=== PATIENT | male | born 2000 | race Caucasian/White ===

== ENCOUNTER 2018-04-20 10:24 | Emergency (ER) | payer OTHER ==
[2018-04-20 10:43] VITALS: BP 131/72
--- NOTE | 2018-06-01 09:17 | UC ---
Heather Munoz Emily, scribed for Marion Roche MD on 04/20/18 at 1056 . Dental HPI - HPI Summary HPI Summary: This patient is a 17 year old M presenting to convenient care with a chief complaint of right upper gum pain began 2 days ago. The patient rates the pain 8 /10 in severity. Symptoms aggravated by nothing. Symptoms alleviated by nothing. Patient reports R upper gum swelling. Patient denies ear pain. Pt reports that he called his dentist, who referred him to urgent care because the soonest appointment was May 08, 2018. Pt reports having a recent root canal in the back, upper right. - History of Current Complaint Chief Complaint: UCDentalProblem Stated Complaint: FACE SWELLING Time Seen by Provider: 04/20/18 10:46 Hx Obtained From: Patient Onset/Duration: Sudden Onset, Lasting Days, Still Present Severity: Severe Pain Intensity: 8 Pain Scale Used: 0-10 Numeric Aggravating Factor(s): Nothing Alleviating Factor(s): Nothing Related History: Previous Dental Care on Same Tooth - Allergies/Home Medications Allergies/Adverse Reactions: Allergies Allergy/AdvReac Type Severity Reaction Status Date / Time No Known Allergies Allergy Verified 04/20/18 10:36 PMH/Surg Hx/FS Hx/Imm Hx Previously Healthy: No Respiratory History: Asthma Neurological History: Other Other Neurological History: Concussion - Surgical History Surgical History: None - Family History Known Family History: Negative: Cardiac Disease, Hypertension, Diabetes - Social History Occupation: Student Lives: With Family Alcohol Use: None Substance Use Type: None Smoking Status (MU): Never Smoked Tobacco - Immunization History Vaccination Up to Date: Yes Review of Systems Constitutional: Other - Negative fever ENT: Other - Positive right upper gum swelling and right upper gum pain. Negative ear pain All Other Systems Reviewed And Are Negative: Yes Physical Exam Triage Information Reviewed: Yes Appearance: Well-Appearing Vital Signs: Initial Vital Signs Temp 97.7 F 04/20/18 10:38 Pulse 56 04/20/18 10:38 Resp 16 04/20/18 10:38 BP 131/72 04/20/18 10:38 Pulse Ox 99 04/20/18 10:38 Vital Signs Reviewed: Yes Eye Exam: Normal ENT: Positive: Other - Both ear drums are scarred but both are intact Dental Exam: Other - R first molar percussion tenderness, mild swelling gum. Tongue not elevated. Neck exam: Normal Neck: Positive: Supple, Nontender, No Lymphadenopathy Respiratory Exam: Normal Respiratory: Positive: Other: - No dyspnea, no tachypnea, normal respiratory rate Cardiovascular Exam: Normal Cardiovascular: Positive: RRR, Other: - Good skin color, good capillary refill Abdominal Exam: Normal Abdomen Description: Positive: Nontender, No Organomegaly, Soft Bowel Sounds: Positive: Present Musculoskeletal Exam: Normal Musculoskeletal: Positive: Strength Intact Neurological Exam: Normal Neurological: Positive: Other: - Nonfocal, grossly intact Psychological Exam: Normal Psychological: Positive: Other: - Conversing easily and appropriately Skin Exam: Normal Skin: Positive: Other - No visible or reported rash Dental Complaint Course/Dx - Course Course Of Treatment: Reviewed coa / tx plan with pt. Questions as posed answered to the best of my ability. - Differential Dx/Diagnosis Provider Diagnoses: Dental Abscess Discharge - Sign-Out/Discharge Documenting (check all that apply): Patient Departure - Discharge - Discharge Plan Condition: Stable Disposition: HOME Prescriptions: Amoxicillin/Clavulanate TAB* [Augmentin TAB 875*] 875 mg PO BID #20 tab Ibuprofen TAB* [Motrin TAB* 600 MG] 600 mg PO Q8H PRN #30 tab PRN Reason: Pain Patient Education Materials: Dental Abscess (ED) Referrals: Abdulaziz Huffman MD [Primary Care Provider] - Additional Instructions: PROBIOTICS OR YOGURT ONCE A DAY EVERYDAY, WHILE TAKING THE ANTIBIOTICS FOLLOW UP WITH YOUR DENTIST SCHEDULED BEGINNING OF APRIL. SEEK CARE AT THE EMERGENCY DEPARTMENT IF SYMPTOMS WORSEN OR IF NEW SYMPTOMS DEVELOP. - Billing Disposition and Condition Condition: STABLE Disposition: Home The documentation as recorded by the Heather torres Emily accurately reflects the service I personally performed and the decisions made by me, Marion Roche MD.
== END 2018-04-20 11:24 | disposition home or self-care (01) ==
LOC: UCEAST 10:24
DX: K04.7 Periapical abscess without sinus (principal); J45.909 Unspecified asthma, uncomplicated; Z87.820 Personal history of traumatic brain injury
CPT/HCPCS: 99212; G0463

== ENCOUNTER 2018-08-25 15:12 | Emergency (ER) | payer OTHER ==
--- OUTSIDE RECORDS SUMMARY | 2018-08-25 15:19 | XMS REPORT ---
:2000 External Reference #:[id number] Author Organization [facility] Address [address] [place] [id number] Phone [phone] Care Team Providers Name Role Phone Abdulaziz Huffman M.D. Primary Care Physician Unavailable Payers Type Date Identification Numbers Payment Provider Subscriber Commercial Effective: Policy Number: [id number] Homero Patterson 2004 [employer] Expires: 2018 PayID: [id number] [address] [address] [place] [address] Medicaid Effective: 2018 Policy Number: [id number] Medicaid [place] Fahad Patterson PayID: [id number] [address] [place] [address] Problems Date Description Provider Status Onset: 06/21/2010 Insomnia Active Onset: 02/11/2010 Anxiety state Active Onset: 10/23/2004 Attention deficit hyperactivity disorder Active Onset: Asthma Active Family History Date Family Member(s) Problem(s) Comments Father Depression Mother Asthma Mother Depression Mother Hypertension First Brother Attention Deficit Disorder (ADD) Social History Type Date Description Comments ETOH Use Denies alcohol use Smoking Patient has never smoked Recreational Drug Use Denies Drug Use Smoking Exposure To Second-Hand Smoke Currently Active Has never engaged in sexual activity Allergies, Adverse Reactions, Alerts Date Description Reaction Status Severity Comments 08/13/2015 NKDA active Medications Medication Date Status Form Strength Qnty SIG Indications Ordering Provider No Active 03/29/ Active Unknown Medications 2018 Mometasone 03/03/ Hx Cream 0.1% 45uni apply tafa Ger G. Furoate 2018 - ts twice a day Amirah, 03/17/ for 2 weeks MCricket 2018 No Active 02/05/ Hx Unknown Medications 2017 - 2017 Clotrimazole 02/05/ Hx Cream 1% 45gm apply four L03.119 Abdulaziz 2018 - times a day Snedeker, 03/22/ x 2 weeks M.D. 2018 to affected skin Clotrimazole 01/22/ Hx Cream 1% 45gm apply four L03.119 Ger Stack 2018 - times a day Torrado, 02/05/ x 2 weeks M.D. 2018 to affected skin Mometasone 01/22/ Hx Cream 0.1% 45gm apply tafa L03.119 Ger Stack Furoate 2018 - twice a day Torrado, 02/05/ for 2 weeks M.D. 2017 No Active 01/15/ Hx Unknown Medications 2017 - 2017 Cephalexin 01/15/ Hx Capsules 500mg QS 1 tab by L03.119 Ger Stack 2018 - mouth three Torrado, 02/05/ times a day M.D. 2018 x 7 days Mupirocin 01/15/ Hx Ointment 2% 44gm apply tafa [id number] Abdulaziz 2018 - three times Snedeker, 02/05/ a day until M.D. 2018 resolved Ibuprofen 11/13/ Hx Tablets 800mg 30tab 1 tab by Abdulaziz 2017 - s mouth every Snedeker, 01/15/ 6 hours as M.D. 2018 needed Citalopram 09/05/ Hx Tablets 20mg 30tab 1 tab by F41.1 Abdulaziz Hydrobromide 2015 - s mouth daily Snedeker, 01/15/ M.D. 2017 No Active 03/12/ Hx Unknown Medications 2015 - 2015 Ventolin HFA 01/01/ Hx Aerosol 108(90Bas 8.5un Inhale Two Abdulaziz 2014 - e) its Puffs By Snedeker, 08/13/ mcg/Act Mouthevery M.D. 2014 4 Hours as Needed Methylphenidate 12/21/ Hx Tablets 54mg 90tab one cap by Abdulaziz HCL ER 2015 - ER lets mouth daily Snedeker, 03/11/ (code B) M.D. 2016 Concerta 08/08/ Hx Tablets 54mg 30tab 1 tab by Abdulaziz 2014 - ER s mouth daily Snedeker, 12/21/ every M.D. 2015 morning Ventolin HFA 04/10/ Hx Aerosol 108mcg/Ac Q4H prn Unknown 2014 - t 2014 Citalopram 04/05/ Hx Tablets 40mg 30tab Take One Ger Stack Hydrobromide 2013 - s Tablet By Amirah, 02/19/ Mouth Once M.D. 2015 Daily Clonidine HCL 04/05/ Hx Tablets 0.3mg 30tab Take One Ger Stack 2013 - s Tablet By Amirah, 02/19/ Mouth Once M.D. 2014 Daily Melatonin-Pyridox 07/22/ Hx Tablets 5-10mg Unknown ine 2012 - 2014 Citalopram / Hx Tablets 40mg Take One Unknown Hydrobromide 0000 - Tablet By 03/11/ Mouth Once 2016 Daily Ibuprofen / Hx Tablets 600mg Unknown - 2015 Proair HFA / Hx Aerosol 108(90Bas Inhale Two Unknown 0000 - e) Puffs By 03/11/ mcg/Act Mouthevery 2016 4 Hours as Needed Ventolin HFA / Hx Aerosol 108(90Bas 8gm 2 puffs Abdulaziz 0000 - e) with spacer Snedeker, 01/15/ mcg/Act every 4 M.D. 2018 hours as needed for wheezing or coughing Clonidine HCL / Hx Tablets 0.3mg 30tab 1 tab by Abdulaziz 0000 - s mouth at Snedeker, 01/15/ bedtime M.D. 2018 Medications Administered in Office Medication Date Status Form Strength Qnty SIG Indications Ordering Provider Immunization 03/27/ Administered Injection Cj Administration 2017 LEE Pitts Single Or Combination Immunization 09/05/ Administered Injection Abdulaziz Administration 2016 Snedeker, Single Or M.D. Combination Immunization 03/12/ Administered Injection Abdulaziz Administration 2016 Snedeker, Single Or M.D. Combination Immunization 03/23/ Administered Injection Susan Administration Lisbeth Perera, thru 18 yrs M.D. w/counseling Immunization 02/19/ Administered Injection Abdulaziz Administration 2015 Armida, thru 16 yrs M.D. w/counseling Immunizations CPT Code Status Date Vaccine Lot # [id number] Given 03/27/2017 Meningococcal B Vaccine [id number] 91011 Given 09/05/2016 Flu Quadrivalent [id number] 10357 Given 03/12/2016 Meningococcal B Vaccine [id number] 35180 Given 03/23/2015 Hepatitis B Vaccine Pediatric/Adolescent [id number] 95469 Given 02/19/2015 Meningococcal Vaccine (Any Groups) For [id number] Subcutaneous Use 37095 Given 02/19/2015 Gardasil [id number] 28226 Given 09/06/2013 Influenza Virus Vaccine, Split Virus, 6-35 Months Age Intramuscul 68190 Given 09/06/2013 Gardasil 76793 Given 12/07/2012 Influenza Virus Vaccine, Split Virus, 6-35 Months Age Intramuscul 36449 Given 12/07/2012 Gardasil 79738 Given 11/18/2011 Influenza Virus Vaccine, Split Virus, 6-35 Months Age Intramuscul 69099 Given 11/12/2010 Influenza Virus Vaccine, Split Virus, 6-35 Months Age Intramuscul 00457 Given 11/07/2009 Varicella (Chicken Pox) Vaccine 12807 Given 11/07/2009 Hepatitis A Pediatric 72802 Given 09/27/2009 Influenza Virus Vaccine, Split Virus, 6-35 Months Age Intramuscul 02551 Given 09/25/2009 Tdap 76011 Given 08/09/2008 Menactra 11993 Given 08/09/2008 Hepatitis A Pediatric 34864 Given 09/05/2004 Influenza Virus Vaccine, Split Virus, 6-35 Months Age Intramuscul 64641 Given 06/05/2003 DTaP Vaccine Younger Than 7 67571 Given 06/05/2003 MMR Vaccine, Live, For Subcutaneous Use 82625 Given 06/05/2003 Polio Injectable 69832 Given 05/07/2001 Prevnar 13 74555 Given 11/11/2000 Influenza Virus Vaccine, Split Virus, 6-35 Months Age Intramuscul 86132 Given 04/03/2000 DTaP Vaccine Younger Than 7 34988 Given 04/03/2000 Hib Vaccine 75301 Given 12/06/1999 Varicella (Chicken Pox) Vaccine 14474 Given 12/06/1999 Polio Injectable 79488 Given 12/06/1999 MMR Vaccine, Live, For Subcutaneous Use 37137 Given 04/02/1999 Hib Vaccine 33977 Given 04/02/1999 Rotateq 60032 Given 04/02/1999 DTaP Vaccine Younger Than 7 69879 Given 04/02/1999 Hepatitis B Vaccine Pediatric/Adolescent 33532 Given 02/01/1999 Polio Injectable 76849 Given 02/01/1999 DTaP Vaccine Younger Than 7 91442 Given 02/01/1999 Rotateq 70105 Given 02/01/1999 Hib Vaccine 69450 Given 1998 Polio Injectable 79108 Given 1998 DTaP Vaccine Younger Than 7 92683 Given 1998 Hib Vaccine 38052 Given 1998 Hepatitis B Vaccine Pediatric/Adolescent 10284 Given 1998 Hepatitis B Vaccine Pediatric/Adolescent Vital Signs Date Vital Result Comment 07/27/2018 Body Temperature 98.1 F Heart Rate 88 /min Respiratory Rate 14 /min BP Systolic 112 mmHg BP Diastolic 78 mmHg Weight 317.50 lb Weight in kg's 144.018 Weight Percentile >97th 03/29/2018 Body Temperature 97.4 F Heart Rate 77 /min Respiratory Rate 18 /min BP Systolic 122 mmHg BP Diastolic 72 mmHg Weight 318.00 lb Weight in kg's 144.245 Height 71 inches 5'11" BMI (Body Mass Index) 44.3 kg/m2 Body Mass Index Percentile 99 % Height Percentile 69 % Weight Percentile >97th 02/05/2018 Body Temperature 96.5 F Heart Rate 92 /min Respiratory Rate 20 /min BP Systolic 128 mmHg BP Diastolic 74 mmHg Weight 311.00 lb Weight in kg's 141.070 Weight Percentile >97th 01/22/2018 Body Temperature 97.1 F Heart Rate 76 /min Respiratory Rate 14 /min BP Systolic 120 mmHg BP Diastolic 82 mmHg Weight 314.62 lb Weight in kg's 142.714 Weight Percentile >97th 01/15/2018 Body Temperature 97.7 F Heart Rate 82 /min Respiratory Rate 18 /min BP Systolic 128 mmHg BP Diastolic 76 mmHg Weight 312.00 lb Weight in kg's 141.523 Weight Percentile >97th 03/27/2017 Body Temperature 97.9 F Heart Rate 67 /min Respiratory Rate 16 /min BP Systolic 112 mmHg BP Diastolic 71 mmHg Blood Pressure Percentile 0 % Weight 273.75 lb Weight in kg's 124.173 Height 71.25 inches 5'11.25" BMI (Body Mass Index) 37.9 kg/m2 Body Mass Index Percentile 99 % Height Percentile 74 % Weight Percentile >97th 10/10/2016 Body Temperature 98.0 F Heart Rate 70 /min Respiratory Rate 14 /min BP Systolic 118 mmHg BP Diastolic 70 mmHg Blood Pressure Percentile 33 % Weight 237.25 lb Weight in kg's 107.617 Height 71.25 inches 5'11.25" BMI (Body Mass Index) 32.9 kg/m2 Body Mass Index Percentile 98 % Height Percentile 75 % Weight Percentile >97th 09/05/2016 Body Temperature 98.1 F Heart Rate 80 /min Respiratory Rate 20 /min BP Systolic 162 mmHg BP Diastolic 62 mmHg Blood Pressure Percentile 0 % Weight 234.00 lb Weight in kg's 106.142 Weight Percentile >97th 03/12/2016 Body Temperature 98.3 F Heart Rate 55 /min Respiratory Rate 12 /min BP Systolic 113 mmHg BP Diastolic 57 mmHg Blood Pressure Percentile 21 % Weight 227.25 lb Weight in kg's 103.081 Height 71.25 inches 5'11.25" BMI (Body Mass Index) 31.5 kg/m2 Body Mass Index Percentile 98 % Height Percentile 77 % Weight Percentile >97th 08/28/2015 Body Temperature 98.8 F Heart Rate 68 /min Respiratory Rate 18 /min BP Systolic 118 mmHg BP Diastolic 78 mmHg Blood Pressure Percentile 0 % Weight 217.62 lb Weight in kg's 98.715 Weight Percentile >97th 08/22/2015 Body Temperature 98.6 F Heart Rate 72 /min Respiratory Rate 10 /min BP Systolic 112 mmHg BP Diastolic 49 mmHg Weight 218.00 lb Weight in kg's 98.883 Height 71 inches O2 % BldC Oximetry 100 % 08/13/2015 Body Temperature 97.9 F Heart Rate 60 /min Respiratory Rate 18 /min BP Systolic 110 mmHg BP Diastolic 72 mmHg Blood Pressure Percentile 16 % Weight 218.00 lb Weight in kg's 98.885 Height 70.9 inches 5'10.90" BMI (Body Mass Index) 30.5 kg/m2 Body Mass Index Percentile 98 % Height Percentile 76 % Weight Percentile >97th 03/23/2015 Body Temperature 97.8 F Heart Rate 68 /min Respiratory Rate 18 /min BP Systolic 112 mmHg BP Diastolic 62 mmHg Blood Pressure Percentile 24 % Weight 234.25 lb Weight in kg's 106.256 Height 70.4 inches 5'10.40" BMI (Body Mass Index) 33.2 kg/m2 Body Mass Index Percentile 99 % Height Percentile 72 % Weight Percentile >97th 02/19/2015 Body Temperature 98.5 F Heart Rate 84 /min Respiratory Rate 16 /min BP Systolic 118 mmHg BP Diastolic 72 mmHg Blood Pressure Percentile 47 % Weight 233.00 lb Weight in kg's 105.689 Height 70 inches 5'10" BMI (Body Mass Index) 33.4 kg/m2 Body Mass Index Percentile 99 % Height Percentile 68 % Weight Percentile >97th 08/01/2014 Heart Rate 101 /min Respiratory Rate 16 /min BP Systolic 115 mmHg BP Diastolic 72 mmHg Weight 214.12 lb Weight in kg's 97.114 01/03/2014 Heart Rate 79 /min Respiratory Rate 12 /min BP Systolic 128 mmHg BP Diastolic 84 mmHg Weight 208.81 lb Weight in kg's 94.710 Height 69.5 inches 12/13/2013 Heart Rate 90 /min Respiratory Rate 12 /min BP Systolic 108 mmHg BP Diastolic 71 mmHg Weight 207.88 lb Weight in kg's 94.302 Height 69.5 inches 09/06/2013 Heart Rate 91 /min Respiratory Rate 16 /min BP Systolic 117 mmHg BP Diastolic 62 mmHg Weight 204.12 lb Weight in kg's 92.578 09/02/2013 Heart Rate 84 /min Respiratory Rate 12 /min BP Systolic 124 mmHg BP Diastolic 82 mmHg Weight 201.00 lb Weight in kg's 91.172 08/12/2013 Heart Rate 93 /min Respiratory Rate 12 /min BP Systolic 126 mmHg BP Diastolic 72 mmHg Weight 203.88 lb Weight in kg's 92.487 08/02/2013 Heart Rate 104 /min Respiratory Rate 12 /min BP Systolic 126 mmHg BP Diastolic 69 mmHg Weight 203.81 lb Weight in kg's 92.442 07/26/2013 Heart Rate 96 /min Respiratory Rate 20 /min BP Systolic 126 mmHg BP Diastolic 72 mmHg Weight 200.50 lb Weight in kg's 90.945 07/07/2013 Heart Rate 76 /min Respiratory Rate 18 /min BP Systolic 100 mmHg BP Diastolic 72 mmHg Weight 199.25 lb Weight in kg's 90.378 Height 68 inches 12/07/2012 Heart Rate 84 /min Respiratory Rate 18 /min BP Systolic 110 mmHg BP Diastolic 63 mmHg Weight 189.25 lb Weight in kg's 85.842 Height 67.5 inches 11/19/2012 Heart Rate 120 /min Respiratory Rate 20 /min BP Systolic 104 mmHg BP Diastolic 60 mmHg Weight 185.75 lb Weight in kg's 84.255 04/06/2012 Heart Rate 93 /min Respiratory Rate 20 /min BP Systolic 118 mmHg BP Diastolic 76 mmHg Weight 165.31 lb Weight in kg's 74.979 03/12/2012 Heart Rate 108 /min Respiratory Rate 24 /min BP Systolic 106 mmHg BP Diastolic 62 mmHg Weight 165.00 lb Weight in kg's 74.843 Height 64.75 inches 11/18/2011 Heart Rate 84 /min Respiratory Rate 20 /min BP Systolic 108 mmHg BP Diastolic 66 mmHg Weight 149.50 lb Weight in kg's 67.812 Height 63.75 inches 09/09/2011 Heart Rate 64 /min Respiratory Rate 12 /min BP Systolic 120 mmHg BP Diastolic 66 mmHg Weight 137.62 lb Weight in kg's 62.414 Height 62.75 inches 06/10/2011 Heart Rate 79 /min Respiratory Rate 16 /min BP Systolic 90 mmHg BP Diastolic 59 mmHg Weight 126.12 lb Weight in kg's 57.198 Height 62.25 inches 05/27/2011 Heart Rate 109 /min Respiratory Rate 20 /min BP Systolic 109 mmHg BP Diastolic 82 mmHg Weight 125.12 lb Weight in kg's 56.744 03/11/2011 Heart Rate 92 /min Respiratory Rate 12 /min BP Systolic 97 mmHg BP Diastolic 63 mmHg Weight 125.00 lb Weight in kg's 56.699 Height 61.75 inches 02/20/2011 Weight 124.88 lb Weight in kg's 56.654 12/10/2010 Heart Rate 76 /min Respiratory Rate 12 /min BP Systolic 105 mmHg BP Diastolic 77 mmHg Weight 122.31 lb Weight in kg's 55.474 Height 60.75 inches 11/12/2010 Heart Rate 91 /min Respiratory Rate 12 /min BP Systolic 98 mmHg BP Diastolic 66 mmHg Weight 123.88 lb Weight in kg's 56.200 Height 60.87 inches 08/26/2010 Heart Rate 100 /min Respiratory Rate 20 /min BP Systolic 96 mmHg BP Diastolic 58 mmHg Weight 117.75 lb Weight in kg's 53.401 Height 60.25 inches 06/21/2010 Heart Rate 84 /min Respiratory Rate 16 /min BP Systolic 106 mmHg BP Diastolic 66 mmHg Weight 111.00 lb Weight in kg's 50.349 Height 60.25 inches 04/10/2010 Heart Rate 68 /min Respiratory Rate 14 /min BP Systolic 108 mmHg BP Diastolic 74 mmHg Weight 111.50 lb Weight in kg's 50.576 Height 60 inches 03/29/2010 Heart Rate 82 /min Respiratory Rate 16 /min BP Systolic 110 mmHg BP Diastolic 74 mmHg Weight 110.25 lb Weight in kg's 50.009 Height 60 inches 03/20/2010 Heart Rate 92 /min Respiratory Rate 16 /min BP Systolic 110 mmHg BP Diastolic 70 mmHg Weight 109.00 lb Weight in kg's 49.442 03/01/2010 Heart Rate 88 /min Respiratory Rate 16 /min BP Systolic 110 mmHg BP Diastolic 70 mmHg Weight 106.25 lb Weight in kg's 48.194 Height 59.5 inches 02/18/2010 Heart Rate 88 /min Respiratory Rate 12 /min BP Systolic 120 mmHg BP Diastolic 78 mmHg Weight 106.75 lb Weight in kg's 48.421 02/11/2010 Heart Rate 90 /min Respiratory Rate 18 /min BP Systolic 110 mmHg BP Diastolic 72 mmHg Weight 105.00 lb Weight in kg's 47.627 Height 60 inches 11/07/2009 Heart Rate 96 /min Respiratory Rate 20 /min BP Systolic 101 mmHg BP Diastolic 64 mmHg Weight 102.81 lb Weight in kg's 46.629 Height 59 inches 05/28/2009 Heart Rate 100 /min Respiratory Rate 24 /min BP Systolic 108 mmHg BP Diastolic 62 mmHg Weight 106.25 lb Weight in kg's 48.194 04/03/2009 Heart Rate 72 /min Respiratory Rate 16 /min BP Systolic 104 mmHg BP Diastolic 68 mmHg Weight 110.25 lb Weight in kg's 50.009 08/09/2008 Heart Rate 100 /min Respiratory Rate 28 /min BP Systolic 98 mmHg BP Diastolic 72 mmHg Weight 92.25 lb Weight in kg's 41.844 Height 55.75 inches 06/06/2008 Heart Rate 104 /min Respiratory Rate 20 /min BP Systolic 86 mmHg BP Diastolic 62 mmHg Weight 89.50 lb Weight in kg's 40.597 Height 55.75 inches 06/18/2007 Heart Rate 84 /min Respiratory Rate 28 /min BP Systolic 78 mmHg BP Diastolic 50 mmHg Weight 70.00 lb Weight in kg's 31.751 Height 53.75 inches 01/04/2007 Heart Rate 100 /min Respiratory Rate 18 /min BP Systolic 90 mmHg BP Diastolic 60 mmHg Weight 62.50 lb Weight in kg's 28.350 10/28/2006 Heart Rate 88 /min Respiratory Rate 20 /min BP Systolic 90 mmHg BP Diastolic 60 mmHg Weight 58.75 lb Weight in kg's 26.649 Height 52.25 inches Height Percentile 78 % Weight Percentile 58th 03/04/2006 Heart Rate 76 /min Respiratory Rate 20 /min BP Systolic 94 mmHg BP Diastolic 56 mmHg Weight 60.00 lb Weight in kg's 27.216 Results Test Date Test Result H/L Range Note Comp Metabolic Panel 04/03/2018 Sodium 138 mmol/L Low 139-145 Potassium 4.4 mmol/L 3.5-5.0 Chloride 107 mmol/L 101-111 Co2 Carbon Dioxide 25 mmol/L 22-32 Anion Gap 6 mmol/L 2-11 Glucose 85 mg/dL 70-100 Blood Urea Nitrogen 17 mg/dL 6-24 Creatinine 0.82 mg/dL 0.67-1.17 BUN/Creatinine Ratio 20.7 High 8-20 Calcium 9.8 mg/dL 8.6-10.3 Total Protein 7.1 g/dL 6.4-8.9 Albumin 4.4 g/dL 3.2-5.2 Globulin 2.7 g/dL 2-4 Albumin/Globulin Ratio 1.6 1-3 Total Bilirubin 0.50 mg/dL 0.2-1.0 Alkaline Phosphatase 85 U/L 34-104 Alt 49 U/L 7-52 Ast 25 U/L 13-39 Egfr Non- 121.0 >60 Egfr 155.7 >60 1 Laboratory test finding 04/03/2018 Hemoglobin A1c (Glyco HGB) 5.0 % 4.0- 5.6 2 .Cholesterol Screening 03/29/2018 Cholesterol Total Mass/Vol 185 HDL Cholesterol Mass/Vol 35 Triglycerides Ser/Plas Mass/VL 20 LDL Cholesterol Mass/Vol 109 Non-HDL Cholesterol QN Ser/PLS 150 LDL/HDL Ratio 5.3 Laboratory test finding 02/05/2018 Fungus Culture Skin SEE RESULT BELOW 3 Laboratory test finding 02/05/2018 Fungus Culture Skin SEE RESULT BELOW 4 Laboratory test finding 02/05/2018 Fungus Culture Skin SEE RESULT BELOW 5 Laboratory test finding 10/07/2017 Magnesium 2.0 mg/dL 1.9-2.7 Lipase 15 U/L 11.0-82.0 C Reactive Protein 2.94 mg/L < 5.00 6 TSH (Thyroid Stim Horm) 3.00 mcIU/mL 0.34-5.60 Comp Metabolic Panel 10/07/2017 Sodium 136 mmol/L 133-145 Potassium 3.8 mmol/L 3.5-5.0 Chloride 104 mmol/L 101-111 Co2 Carbon Dioxide 27 mmol/L 22-32 Anion Gap 5 mmol/L 2-11 Glucose 77 mg/dL 70-100 Blood Urea Nitrogen 15 mg/dL 6-24 Creatinine 0.91 mg/dL 0.67-1.17 BUN/Creatinine Ratio 16.5 8-20 Calcium 9.8 mg/dL 8.6-10.3 Total Protein 7.2 g/dL 6.4-8.9 Albumin 4.3 g/dL 3.2-5.2 Globulin 2.9 g/dL 2-4 Albumin/Globulin Ratio 1.5 1-3 Total Bilirubin 0.30 mg/dL 0.2-1.0 Alkaline Phosphatase 67 U/L 34-104 Alt 46 U/L 7-52 Ast 23 U/L 13-39 Egfr Non- 107.3 >60 Egfr 138.0 >60 7 Laboratory test finding 10/07/2017 D Dimer Quantitative < 200 ng/mL Less Than 230 8 Lactic Acid 0.9 mmol/L 0.5-2.0 9 Troponin-I (TnI) 0.00 ng/mL <0.04 Inr/Protime 10/07/2017 Inr 0.97 0.89-1.11 CBC Auto Diff 10/07/2017 White Blood Count 10.6 10^3/uL 3.5-10.8 Red Blood Count 4.93 10^6/uL 4.0-5.4 Hemoglobin 15.2 g/dL 14.0-18.0 Hematocrit 44 % 42-52 Mean Corpuscular Volume 89 fL 80-94 Mean Corpuscular Hemoglobin 31 pg 27-31 Mean Corpuscular HGB Conc 35 g/dL 31-36 Red Cell Distribution Width 12 % 10.5-15 Platelet Count 273 10^3/uL 150-450 Mean Platelet Volume 8 um3 7.4-10.4 Abs Neutrophils 6.9 10^3/uL 1.5-7.7 Abs Lymphocytes 2.7 10^3/uL 1.0-4.8 Abs Monocytes 0.7 10^3/uL 0-0.8 Abs Eosinophils 0.2 10^3/uL 0-0.6 Abs Basophils 0.1 10^3/uL 0-0.2 Abs Nucleated RBC 0.02 10^3/uL Granulocyte % 65.3 % 38-83 Lymphocyte % 25.6 % 25-47 Monocyte % 6.6 % 1-9 Eosinophil % 2.0 % 0-6 Basophil % 0.5 % 0-2 Nucleated Red Blood Cells % 0.2 .Urinalysis DIP Only 03/23/2015 Ua Color yellow Ua Clarity clear Ua Glucose neg Ua Bilirubin neg Ua Ketones neg Ua Specific Milroy 1.015 Ua Blood Qual neg Ua PH Test Strip 7.0 Ua Protein neg Ua Urobilinogen neg Ua Nitrate neg Ua Leukocytes neg Laboratory test finding 09/02/2013 Granulocytes # 4.1 1.5-8.0 Granulocytes (%) 58.8 38.0-83.0 Hematocrit 45.7 36.0-46.0 Hemoglobin 15.6 12.0-16.0 Lymphocytes # 1.9 1.2-5.2 Lymphocytes % 27.8 20.0-45.0 Mean Corpuscular Hemoglobin 31.3 26.0-34.0 Mean Corpuscular Hemoglobin Concent 34.1 31.0-37.0 Mean Platelet Volume 7.8 7.4-10.4 Monocytes # 0.9 High 0.0-0.8 Monocytes % 13.4 High 1.0-9.0 Platelet Count 278 x10.3/ul 150-350 Poc Mean Corpuscular Volume 91.6 78.0-102.0 Red Blood Count 4.99 3.90-5.10 Red Cell Distribution Width 13.2 10.5-15.0 White Blood Count 6.9 4.5-13.5 Laboratory test finding 11/18/2012 Throat Culture Negative Laboratory test finding 11/17/2012 Group A Streptococcus Screen negative Laboratory test finding 04/05/2012 1/Creatinine 2.00 Absolute Basophils (CBC) 0 0-0.2 Absolute Eosinophils (CBC) 0.2 0-0.6 Absolute Lymphocytes (CBC) 1.7 1.0-4.8 Absolute Monocytes (CBC) 0.5 0-0.8 Absolute Neutrophil 4.4 1.5-7.7 Alanine Aminotransferase (Alt/SGPT) 29 U/L 17-63 Albumin 4.0 3.6-5.4 Albumin/Globulin Ratio 1.6 1-3 Alkaline Phosphatase 270 U/L 135-393 Anion Gap 5.0 2-11 Aspartate Amino Transf (Ast/Sgot) 23 U/L 12-42 BUN/Creatinine Ratio 24.0 8-20 Basophils % 0.2 0-2 Blood Urea Nitrogen 12 mg/dL 6-24 Calcium Level 9.4 8.1-9.9 Carbon Dioxide Level 25.0 22-32 Chloride Level 105 mmol/L 101-111 Creatinine 0.5 0.50-1.40 Eosinophils % 2.5 0-6 Globulin 2.5 2-4 Glucose Level 91 mg/dL 70-100 Granulocytes (%) 65.3 38-83 Hematocrit 39 % 35-45 Hemoglobin 13.8 11.5-15.5 Lymphocytes % 25.0 25-47 Mean Corpuscular Hemoglobin 31 pg 27-31 Mean Corpuscular Hemoglobin Concent 35 g/dL 32-36 Mean Corpuscular Volume 88 um3 80-94 Mean Platelet Volume 7.5 7.4-10.4 Monocytes % 7.0 1-9 Platelet Count 314 CUMM 150-450 Potassium Level 3.8 3.6-5.2 Red Blood Count 4.45 4.0-5.2 Red Cell Distribution Width 13 % 10.5-15 Sodium Level 135 mmol/L 135-145 Thyroid Stimulating Hormone (TSH) 1.89 0.34-5.60 Total Bilirubin 0.5 0.4-1.5 Total Protein 6.5 6.2-8.1 White Blood Count 6.8 4.8-10.8 Laboratory test finding 05/27/2011 Urine Bilirubin Negative Urine Blood negative Urine Clarity Clear Urine Collection Type Clean Urine Color Yellow Urine Glucose negative Urine Ketones Negative Urine Leukocyte Esterase negative Urine Nitrite Negative Urine Protein Negative Urine Specific Milroy 1.010 Urine Urobilinogen Normal 0.2-1.0 Urine pH 7 Laboratory test finding 05/29/2009 Throat Culture negative Laboratory test finding 05/28/2009 Granulocytes # 2.6 1.5-8.0 Granulocytes (%) 55.1 High 20.0-40.0 Hematocrit 40.0 34.0-40.0 Hemoglobin 13.2 11.5-15.5 Lymphocytes # 1.5 1.5-7.0 Lymphocytes % 32.3 Low 40.0-55.0 Mean Corpuscular Hemoglobin 29.0 25.0-31.0 Mean Corpuscular Hemoglobin Concent 33.1 31.0-37.0 Mean Platelet Volume 6.7 Low 7.4-10.4 Monocytes # 0.6 0.2-2.0 Monocytes % 12.7 0.0-13.0 Platelet Count 195 x10.3/ul 150-350 Poc Mean Corpuscular Volume 87.8 High 75.0-87.0 Red Blood Count 4.56 3.80-4.90 Red Cell Distribution Width 12.3 10.5-15.0 Urine Bilirubin Negative Urine Blood negative Urine Clarity Clear Urine Collection Type Clean Urine Color Yellow Urine Glucose negative Urine Ketones Negative Urine Leukocyte Esterase negative Urine Nitrite Negative Urine Protein Trace Urine Specific Milroy 1.020 Urine Urobilinogen Normal 0.2-1.0 Urine pH 6 White Blood Count 4.7 4.5-13.5 Laboratory test finding 04/04/2009 Throat Culture negative 1 Because ethnic data is not always readily available, this report includes an eGFR for both -Americans and non- Americans. The National Kidney Disease Education Program (NKDEP) does not endorse the use of the MDRD equation for patients that are not between the ages of 18 and 70, are , have extremes of body size, muscle mass, or nutritional status, or are non- or non-. According to the National Kidney Foundation, irrespective of diagnosis, the stage of the disease is based on the level of kidney function: Stage Description GFR(mL/min/1.73 m(2)) 1 Kidney damage with normal or decreased GFR 90 2 Kidney damage with mild decrease in GFR 60-89 3 Moderate decrease in GFR 30-59 4 Severe decrease in GFR 15-29 5 Kidney failure <15 (or dialysis) 2 Therapeutic target for the treatment of diabetes mellitus patients is <7% HBA1C, and in selective patients <6.0%. Please refer to [place] [employer] diabetic care guidelines for further information. 3 SEE RESULT BELOW Name: FAHAD PATTERSON : [address]: Lourdes HOWARD Acct: [id number] Unit: [id number] AGE: 17 Location: [facility] Re02/05/18 SEX: M Status: REG REF SPEC: [id number] ELEAZAR: 02/05/18-[address]: Lourdes HOWARD REQ: [id number] RECD: 02/05/18 STATUS: RES _ SOURCE: SKIN SCRAP SPDESC: ORDERED: Fungal Cult Rosa COMMENTS: [id number] Procedure Result Reported Site Fungal Cult Skin/Hair/Nails Preliminary 02/15/18- 1400 ML No Growth Week 1 * - Main Lab . END OF REPORT DEPARTMENT OF PATHOLOGY, [address] [place] [address] Ruben Clemons M.D. Director [facility] # [id number] 4 SEE RESULT BELOW Name: FAHAD PATTERSON : [address]: Lourdes HOWARD Acct: [id number] Unit: [id number] AGE: 17 Location: [facility] Re02/05/18 SEX: M Status: REG REF SPEC: [id number] ELEAZAR: 02/05/18-[address] [facility] DR: Lourdes HOWARD REQ: [id number] RECD: 02/05/18 STATUS: RES _ SOURCE: SKIN SCRAP SPDESC: ORDERED: Fungal Cult Rosa COMMENTS: [id number] Procedure Result Reported Site Fungal Cult Skin/Hair/Nails Preliminary 03/01/18- 1115 ML No Growth Week 3 * ML - Main Lab . END OF REPORT DEPARTMENT OF PATHOLOGY, [address] [place] [address] Ruben Clemons M.D. Director [facility] # [id number] 5 SEE RESULT BELOW Name: FAHAD PATTERSON : [address]: Lourdes HOWARD Acct: [id number] Unit: [id number] AGE: 17 Location: [facility] Re02/05/18 SEX: M Status: REG REF SPEC: [id number] ELEAZAR: 02/05/18-[address] [facility] DR: Lourdes HOWARD REQ: [id number] RECD: 02/05/18 STATUS: COMP _ SOURCE: SKIN SCRAP SPDESC: ORDERED: Fungal Cult Skn COMMENTS: [id number] Procedure Result Reported Site Fungal Cult Skin/Hair/Nails Final 03/08/18- 1237 ML No Growth Week 4 * ML - Main Lab . END OF REPORT DEPARTMENT OF PATHOLOGY, [address] [place] [address] Ruben Clemons M.D. Director [facility] # [id number] 6 Acute inflammation: >10.00 7 Because ethnic data is not always readily available, this report includes an eGFR for both -Americans and non- Americans. The National Kidney Disease Education Program (NKDEP) does not endorse the use of the MDRD equation for patients that are not between the ages of 18 and 70, are , have extremes of body size, muscle mass, or nutritional status, or are non- or non-. According to the National Kidney Foundation, irrespective of diagnosis, the stage of the disease is based on the level of kidney function: Stage Description GFR(mL/min/1.73 m(2)) 1 Kidney damage with normal or decreased GFR 90 2 Kidney damage with mild decrease in GFR 60-89 3 Moderate decrease in GFR 30-59 4 Severe decrease in GFR 15-29 5 Kidney failure <15 (or dialysis) 8 Please note: The following may produce a false positive D Dimer test: - Rheumatoid factor greater than 60 IU/ml - Plasma hemoglobin greater than 0.05 gm/dl - Bilirubin greater than 50 mg/dl - Lipids greater than 1000 mg/dl - FDP greater than 20 ug/ml 9 [place] Severe Sepsis and Septic Shock Management Bundle Measure requires all lactic acids initially measuring >2.0 mmol/L be repeated. Procedures Date CPT Code Description Status 03/29/2018 63636 Vision Screening Completed 03/29/2018 05913 Admin Patient Focused Health Risk Assessment Instrument Completed 03/29/2018 61990 Brief Emotional/Behav Assessment W/ Scoring Doc Per Completed Standard Inst 03/29/2018 10118 Hearing Screen, Pure Tone, Air Completed 03/29/2018 13776 Collection Of Capillary Blood Specimen Completed 03/27/2017 13210 Vision Screening Completed 03/27/2017 10940 Admin Patient Focused Health Risk Assessment Instrument Completed 03/27/2017 84869 Brief Emotional/Behav Assessment W/ Scoring Doc Per Completed Standard Inst 03/27/2017 49538 Hearing Screen, Pure Tone, Air Completed 03/12/2016 61329 Vision Screening Completed 03/12/2016 67585 Hearing Screen, Pure Tone, Air Completed 02/19/2015 28223 Vision Screening Completed 02/19/2015 46694 Hearing Screen, Pure Tone, Air Completed Encounters Type Date Location Provider CPT E/M Dx Office Visit 07/27/2018 4:45p [facility] Abdulaziz Huffman M.D. 64456 M20.42 Office Visit 03/29/2018 1:30p [facility] Abdulaziz Huffman M.D. 17229 Z00.01 E66.9 Z13.89 Z71.89 Office Visit 02/05/2018 10:00a [facility] MAHSA Del Toro 45367 L03.119 Office Visit 01/22/2018 11:00a [facility] Ger Macario M.D. 42298 L03.119 Office Visit 01/15/2018 3:45p [facility] MAHSA Del Toro 09492 L03.119 Office Visit 03/27/2017 11:30a [facility] LEE Ahumada 06325 Z00.00 F41.1 Z72.821 Z71.89 J45.20 Office Visit 10/10/2016 5:00p [facility] Abdulaziz Huffman M.D. 08094 F41.1 Office Visit 09/05/2016 5:00p [facility] Abdulaziz Huffman M.D. 67197 S16.1xxD F41.1 Office Visit 03/12/2016 9:00a [facility] Abdulaziz Huffman M.D. 33518 Z00.129 Office Visit 08/28/2015 9:15a [facility] Martín Dove M.D. 80423 S93.401A Office Visit 08/13/2015 9:45a [facility] Abdulaziz Huffman M.D. 51826 314.01 493.90 Office Visit 03/23/2015 10:00a [facility] Susan Perera M.D. 75171 724.5 Office Visit 02/19/2015 2:15p [facility] Abdulaziz Huffman M.D. 85754 V20.2 314.01 780.52 493.90 Plan of Care Future Appointment(s):04/04/2019 10:30 am - Abdulaziz Huffman M.D. at [facility] [id number]/27/2018 - Abdulaziz Huffman M.D.M20.42 Other hammer toe(s) (acquired), left footReferral:Poncho Rehman DPAvinash, Defect Repairer [employer]
[2018-08-25 15:37] VITALS: BP 112/78
--- NOTE | 2018-08-25 15:58 | UC ---
Cardiac HPI - HPI Summary HPI Summary: ONSET YESTERDAY OF MIDSTERNAL CHEST PAIN THAT IS WORSE AFTER EATING. COMPLAINS OF MILD COUGH AND SHORTNESS OF BREATH. STATES HE FEELS LIKE HE NEEDS TO BURP BUT IS UNABLE TO. REPORTS HE EATS 1-2 MEALS PER DAY. - History of Current Complaint Chief Complaint: UCChestPain Stated Complaint: CHEST PAIN,COUGH,DIFFICULTY BREATHING Time Seen by Provider: 08/25/18 15:26 Hx Obtained From: Patient Onset/Duration: Sudden Onset, Lasting Days - 1 DAY Timing: Intermittent Episodes Lasting: Initial Severity: Moderate Current Severity: None Pain Intensity: 6 Chest Pain Location: Mid Sternal Character: Burning Aggravating Factor(s): Other - EATING Alleviating Factor(s): Spontaneous Resolution Associated Signs & Symptoms: Positive: Chest Pain, SOB, Cough. Negative: Weakness, Nausea/Vomiting - Allergy/Home Medications Allergies/Adverse Reactions: Allergies Allergy/AdvReac Type Severity Reaction Status Date / Time No Known Allergies Allergy Verified 08/25/18 15:32 Home Medications: Home Medications Clindamycin HCl 1 tab PO BID 08/25/18 [History Confirmed 08/25/18] PMH/Surg Hx/FS Hx/Imm Hx Previously Healthy: Yes - Surgical History Surgical History: None - Family History Known Family History: Positive: Hypertension Negative: Diabetes - Social History Alcohol Use: None Substance Use Type: None Smoking Status (MU): Never Smoked Tobacco - Immunization History Vaccination Up to Date: Yes Review of Systems Constitutional: Negative Skin: Negative Respiratory: Shortness Of Breath, Cough Cardiovascular: Chest Pain Gastrointestinal: Negative Genitourinary: Negative All Other Systems Reviewed And Are Negative: Yes Physical Exam Triage Information Reviewed: Yes Appearance: Well-Appearing, No Pain Distress, Well-Nourished Vital Signs: Initial Vital Signs Temp 97.1 F 08/25/18 15:33 Pulse 84 08/25/18 15:33 Resp 16 08/25/18 15:33 BP 112/78 08/25/18 15:33 Pulse Ox 98 08/25/18 15:33 Vital Signs Reviewed: Yes Eyes: Positive: Conjunctiva Clear ENT: Positive: Hearing grossly normal, Pharynx normal, TMs normal Neck: Positive: Supple, Nontender, No Lymphadenopathy Respiratory Exam: Normal Cardiovascular Exam: Normal Abdomen Description: Positive: Nontender, Soft. Negative: CVA Tenderness (R), CVA Tenderness (L), Distended, Guarding Bowel Sounds: Positive: Present Musculoskeletal: Positive: No Edema Neurological: Positive: Alert Psychological: Positive: Normal Response To Family, Age Appropriate Behavior Skin: Negative: rashes Diagnostics - EKG Cardiac Rate: NL - 84 BPM Cardiac Rhythm: Sinus: Normal Ectopy: None ST Segment: Normal EKG Comparison: No Significant Change - Assessment/Plan Course Of Treatment: PT WITH MID STERNAL CP THAT IS WORSE AFTER EATING. FEELS LIKE HE NEEDS TO BURP BUT CAN'T. SX C/W REFLUX. TRY NEXIUM DAILY. MODIFY EATING HABITS. TO ED IF SX WORSEN. CONSIDER GI EVAL. EKG UNREMARKABLE. - Clinical Impression Provider Diagnoses: REFLUX Discharge - Sign-Out/Discharge Documenting (check all that apply): Patient Departure All imaging exams completed and their final reports reviewed: No Studies - Discharge Plan Condition: Stable Disposition: HOME Prescriptions: Esomeprazole(NF) [NexIUM(NF)] 40 mg PO DAILY #30 cap Patient Education Materials: Gastroesophageal Reflux Disease (ED) Forms: *School Release Referrals: Abdulaziz Huffman MD [Primary Care Provider] - If Needed Additional Instructions: YOUR SYMPTOMS ARE CONSISTENT WITH REFLUX. TAKE THE REFLUX MEDICINE IN THE MORNING (IDEALLY AT LEAST 30 MINUTES BEFORE YOU EAT). EAT SLOWLY. STAY UPRIGHT AT LEAST 30 MINUTES AFTER EATING. EAT SMALLER, MORE FREQUENT MEALS OPPOSED TO LARGE INFREQUENT MEALS. AVOID POSSIBLE TRIGGER FOODS - GREASY, SPICY, ACIDIC FOODS. CAFFEINE, ALCOHOL. IF YOUR SYMPTOMS PERSIST FOLLOW-UP WITH GI FOR FURTHER EVALUATION. [facility] Address: [address], [place] [address] GO TO ED WITHOUT FAIL IF YOU DEVELOP WORSENING CHEST PAIN, SHORTNESS OF BREATH, NAUSEA, SWEATS, DIZZINESS OR ANY OTHER CONCERNING SYMPTOMS. - Billing Disposition and Condition Condition: STABLE Disposition: Home
== END 2018-08-25 16:23 | disposition home or self-care (01) ==
LOC: UCEAST 15:12
DX: K21.9 Gastro-esophageal reflux disease without esophagitis (principal); R05 Cough; R06.02 Shortness of breath; R07.89 Other chest pain
CPT/HCPCS: 93005; 99212; G0463

== ENCOUNTER 2019-02-28 15:11 | Emergency (ER) | payer OTHER ==
[2019-02-28 15:24] VITALS: BP 117/76
--- NOTE | 2019-02-28 15:47 | UC ---
Lower Extremity/Ankle HPI - HPI Summary HPI Summary: 18 yo male presents with pain. He tells me that he graduated college in Oct 2018 and "hasn't been doing much since then". 3 days ago began a job at [employer]. He is doing a lot of heavy lifting and moving/pushing/ pulling. Since beginning his new job he has been having left shoulder/upper back pain, b/l knee pain, b/l foot and ankle pain. He feels that his right foot is more swollen than usual. He has not taken anything OTC for his discomfort. Pain is better with rest. Denies specific injury, fall, numbness, or tingling. - History of Current Complaint Chief Complaint: UCLowerExtremity Stated Complaint: FOOT PAIN Time Seen by Provider: 02/28/19 15:47 Hx Obtained From: Patient Onset/Duration: Gradual Onset Severity Initially: Moderate Severity Currently: Severe Pain Intensity: 7 Pain Scale Used: 0-10 Numeric - Allergies/Home Medications Allergies/Adverse Reactions: Allergies Allergy/AdvReac Type Severity Reaction Status Date / Time No Known Allergies Allergy Verified 02/28/19 15:25 PMH/Surg Hx/FS Hx/Imm Hx - Additional Past Medical History Additional PMH: None - Surgical History Surgical History: Yes Surgery Procedure, Year, and Place: tubes to ears. ADHD - Family History Known Family History: Positive: Hypertension Negative: Cardiac Disease, Diabetes - Social History Occupation: Employed Full-time Lives: With Family Alcohol Use: None Substance Use Type: None Smoking Status (MU): Never Smoked Tobacco - Immunization History Vaccination Up to Date: Yes Review of Systems All Other Systems Reviewed And Are Negative: Yes Constitutional: Positive: Negative Skin: Positive: Negative Respiratory: Positive: Negative Cardiovascular: Positive: Negative Gastrointestinal: Positive: Negative Neurovascular: Positive: Negative Musculoskeletal: Positive: Other: - Left upper back pain, b/l knee pain, b/l foot and ankle pain Neurological: Positive: Negative Psychological: Positive: Negative Physical Exam - Summary Physical Exam Summary: GENERAL: NAD. WDWN. No pain distress. SKIN: No rashes, sores, lesions, or open wounds. CHEST: No accessory muscle use. Breathing comfortably and in no distress. CV: . Pulses intact popliteal, PT, and DP. Cap refill <2seconds MSK: Mild TTP b/l ankle and b/l feet without specific point tenderness. Moderate TTP at left trapezius worse with left shoulder flexion. FROM at all joints with Strength 5/5. No edema or obvious bony deformities. NEURO: Alert. Sensations intact and symmetric B/L LEs PSYCH: Age appropriate behavior. Triage Information Reviewed: Yes Vital Signs: Initial Vital Signs Temp 98.3 F 02/28/19 15:19 Pulse 101 02/28/19 15:19 Resp 18 02/28/19 15:19 BP 117/76 02/28/19 15:19 Pulse Ox 98 02/28/19 15:19 Vital Signs Reviewed: Yes Lower Extremity Course/Dx - Course Course Of Treatment: Foot XR: IMPRESSION: No fracture of the right foot is noted. Suspect muscle strains from recent increase in physical activity. He is obese and admits to being out of shape, this likely further exacerbates his discomfort. Advised to rest and apply heat/ice to his areas of pain and take naproxen for discomfort. I suspect his pain will improve with time as he gets acclimated to his new job. - Differential Dx/Diagnosis Provider Diagnosis: Muscle strain Discharge - Sign-Out/Discharge Documenting (check all that apply): Patient Departure All imaging exams completed and their final reports reviewed: Yes - Discharge Plan Condition: Stable Disposition: HOME Prescriptions: Naproxen [Naproxen 500 mg tab] 500 mg PO BID PRN #30 tablet.dr MACIAS Reason: Pain Patient Education Materials: Muscle Strain (ED) Referrals: Abdulaziz Huffman MD [Primary Care Provider] - Additional Instructions: If you develop a fever, shortness of breath, chest pain, new or worsening symptoms - please call your PCP or go to the ED. Apply ice/heat to your areas of pain and rest as much as possible There is no "extra bone" in your foot. - Billing Disposition and Condition Condition: STABLE Disposition: Home
== END 2019-02-28 16:29 | disposition home or self-care (01) ==
LOC: UCEAST 15:11
DX: S46.912A Strain of unspecified muscle, fascia and tendon at shoulder and upper arm level, left arm, initial encounter (principal); X50.3XXA Overexertion from repetitive movements, initial encounter; Y99.0 Civilian activity done for income or pay
CPT/HCPCS: 99212; G0463

== ENCOUNTER 2019-05-20 12:26 | Emergency (ER) | payer OTHER ==
[2019-05-20 14:41] VITALS: BP 109/57
--- NOTE | 2019-05-20 15:06 | UC ---
Shoulder Pain HPI - HPI Summary HPI Summary: 18 y/o male presents to the urgent care c/o left shoulder pain radiating to his left side of neck for the past 3 days. - History of Current Complaint Chief Complaint: UCUpperExtremity Stated Complaint: BACK PAIN Time Seen by Provider: 05/20/19 13:57 Hx Obtained From: Patient Pain Intensity: 0 - Allergies/Home Medications Allergies/Adverse Reactions: Allergies Allergy/AdvReac Type Severity Reaction Status Date / Time No Known Allergies Allergy Verified 05/20/19 12:45 PMH/Surg Hx/FS Hx/Imm Hx - Surgical History Surgical History: Yes Surgery Procedure, Year, and Place: tubes to ears. ADHD - Family History Known Family History: Positive: Hypertension Negative: Cardiac Disease, Diabetes - Social History Alcohol Use: None Substance Use Type: None Smoking Status (MU): Never Smoked Tobacco - Immunization History Vaccination Up to Date: Yes Physical Exam Vital Signs: Initial Vital Signs Temp 98 F 05/20/19 12:42 Pulse 75 05/20/19 12:42 Resp 16 05/20/19 12:42 BP 129/68 05/20/19 12:42 Pulse Ox 99 05/20/19 12:42 Shoulder Course/Dx - Differential Dx/Diagnosis Differential Diagnosis/HQI/PQRI: Arthritis, Contusion, Dislocation, Fracture ( Closed), Rotator Cuff Injury, Sprain, Strain, Tendonitis, Other - DDD, Provider Diagnosis: Left shoulder pain, Degenerative disc disease, cervical, Neck muscle spasm Discharge - Sign-Out/Discharge Documenting (check all that apply): Patient Departure - d/C home All imaging exams completed and their final reports reviewed: Yes - Discharge Plan Condition: Stable Disposition: HOME Patient Education Materials: Degenerative Disc Disease (ED), Spasmodic Torticollis (ED) Referrals: Abdulaziz Huffman MD [Primary Care Provider] - 3 Days Allison Patricio Ae RN [Registered Nurse] - 3 Days Additional Instructions: 1- Please take Ibuprofen PO as directed after meals for pain. Medrol dose jordana as directed to alleviate symptoms 2- Take Flexeril PO as directed for muscle spasm. Please do not drive while taking the medication. 3- Avoid strenuous exercise or heavy lifting. 4- Please call Spinal Nurse Navigator: Anahi Patricio: [phone] for further management of your Cervical Degenerative disc disease and herniated discs. 5-Please apply ice, keep your shoulder immobilized with the shoulder sling for 3-4 days and then resume movement slowly - Billing Disposition and Condition Condition: STABLE Disposition: Home
== END 2019-05-20 15:20 | disposition home or self-care (01) ==
LOC: UCEAST 12:26
DX: M25.512 Pain in left shoulder (principal); M62.830 Muscle spasm of back; M50.30 Other cervical disc degeneration, unspecified cervical region
CPT/HCPCS: 72050; 99213; G0463

== ENCOUNTER 2019-09-23 14:19 | Emergency (ER) | payer OTHER ==
[2019-09-23 14:33] VITALS: BP 122/69
--- NOTE | 2019-09-23 16:35 | UC ---
Lower Extremity/Ankle HPI - HPI Summary HPI Summary: The patient is a 18-year-old male with bilateral ankle pain 2 weeks. His pain is been getting progressively worse. He states it is on his feet all day at work. His had swelling of the right ankle. He denies any injury. The pain is currently making and walk with a limp. He has had no fever. He denies any other joint pain. - History of Current Complaint Chief Complaint: UCLowerExtremity Stated Complaint: ankle injury Time Seen by Provider: 09/23/19 15:23 Hx Obtained From: Patient Onset/Duration: Gradual Onset, Lasting Weeks Severity Initially: Mild Severity Currently: Moderate Pain Intensity: 7 Pain Scale Used: 0-10 Numeric Aggravating Factor(s): Standing, Ambulation Alleviating Factor(s): Rest, Elevation Able to Bear Weight: Yes Feet (Multiple View): 1 - pain swelling 2 - pain - Allergies/Home Medications Allergies/Adverse Reactions: Allergies Allergy/AdvReac Type Severity Reaction Status Date / Time No Known Allergies Allergy Verified 09/23/19 14:33 PMH/Surg Hx/FS Hx/Imm Hx Previously Healthy: Yes - Surgical History Surgical History: Yes Surgery Procedure, Year, and Place: tubes - Family History Known Family History: Positive: Hypertension Negative: Cardiac Disease, Diabetes - Social History Alcohol Use: None Substance Use Type: None Smoking Status (MU): Never Smoked Tobacco - Immunization History Vaccination Up to Date: Yes Review of Systems All Other Systems Reviewed And Are Negative: Yes Constitutional: Positive: Negative Skin: Positive: Negative Eyes: Positive: Negative ENT: Positive: Negative Respiratory: Positive: Negative Cardiovascular: Positive: Negative Gastrointestinal: Positive: Negative Genitourinary: Positive: Negative Motor: Positive: Negative Neurovascular: Positive: Negative Musculoskeletal: Positive: Arthralgia - ankles R>L, Edema - Right Lat mall Neurological: Positive: Negative Psychological: Positive: Negative Physical Exam Triage Information Reviewed: Yes Appearance: Well-Appearing, No Pain Distress, Well-Nourished, Other: - BMI 44 Vital Signs: Initial Vital Signs Temp 98.3 F 09/23/19 14:28 Pulse 126 09/23/19 14:28 Resp 20 09/23/19 14:28 BP 122/69 09/23/19 14:28 Pulse Ox 98 09/23/19 14:28 Vital Signs Reviewed: Yes Eyes: Positive: Conjunctiva Clear ENT: Positive: Hearing grossly normal. Negative: Nasal congestion, Nasal drainage, Trismus, Muffled voice Neck: Positive: Supple, Nontender, No Lymphadenopathy Respiratory: Positive: Lungs clear, Normal breath sounds, No respiratory distress, No accessory muscle use Cardiovascular: Positive: RRR, No Murmur Musculoskeletal: Positive: ROM Limited @ - both ankles, Edema @ - LM right ankle Neurological: Positive: Alert Psychological Exam: Normal Skin Exam: Normal Lower Extremity Course/Dx - Differential Dx/Diagnosis Provider Diagnosis: Tendinitis of both ankles Discharge ED - Sign-Out/Discharge Documenting (check all that apply): Patient Departure All imaging exams completed and their final reports reviewed: Yes - Discharge Plan Condition: Stable Disposition: HOME Prescriptions: Naproxen [Naproxen 500 mg tab] 500 mg PO BID PRN #20 tablet PRN Reason: Pain Patient Education Materials: Tendinitis (ED) Forms: *Work Release Referrals: Kim Mohamud MD [Medical Doctor] - Additional Instructions: heat or warm soaks - Billing Disposition and Condition Condition: STABLE Disposition: Home
== END 2019-09-23 16:52 | disposition home or self-care (01) ==
LOC: UCEAST 14:19
DX: M77.52 Other enthesopathy of left foot and ankle (principal); M77.51 Other enthesopathy of right foot and ankle
CPT/HCPCS: 99212; G0463

== ENCOUNTER 2019-12-03 13:57 | Emergency (ER) | payer SELFPAY ==
--- NOTE | 2019-12-03 14:42 | UC ---
Lower Extremity/Ankle HPI - HPI Summary HPI Summary: left great toe ran over by a pallet with a lot of ice on it a couple of hour ago --small amount of bleeding near toe nail - History of Current Complaint Chief Complaint: UCLowerExtremity Stated Complaint: TOE INJURY Time Seen by Provider: 12/03/19 14:26 Hx Obtained From: Patient Onset/Duration: Sudden Onset, Lasting Hours - 2 Pain Intensity: 7 Pain Scale Used: 0-10 Numeric Aggravating Factor(s): Standing, Ambulation Alleviating Factor(s): OTC Meds Able to Bear Weight: Yes - Allergies/Home Medications Allergies/Adverse Reactions: Allergies Allergy/AdvReac Type Severity Reaction Status Date / Time No Known Allergies Allergy Verified 12/03/19 14:24 Home Medications: Home Medications Ibuprofen TAB* [Motrin TAB* 800 MG] 1 tab PO ONCE 12/03/19 [History Confirmed ] PMH/Surg Hx/FS Hx/Imm Hx Previously Healthy: Yes - Surgical History Surgical History: Yes Surgery Procedure, Year, and Place: tubes - Family History Known Family History: Positive: Hypertension Negative: Cardiac Disease, Diabetes - Social History Occupation: Employed Full-time Lives: With Family Alcohol Use: Occasionally Substance Use Type: None Smoking Status (MU): Never Smoked Tobacco - Immunization History Vaccination Up to Date: Yes Review of Systems All Other Systems Reviewed And Are Negative: Yes Constitutional: Positive: Negative Skin: Positive: Bruising - left great toe Eyes: Positive: Negative ENT: Positive: Negative Respiratory: Positive: Negative Cardiovascular: Positive: Negative Gastrointestinal: Positive: Negative Genitourinary: Positive: Negative Motor: Positive: Negative Neurovascular: Positive: Negative Musculoskeletal: Positive: Arthralgia Neurological: Positive: Negative Psychological: Positive: Negative Is Patient Immunocompromised?: No Physical Exam Triage Information Reviewed: Yes Appearance: Well-Appearing, No Pain Distress, Well-Nourished Vital Signs: Initial Vital Signs Temp 97.9 F 12/03/19 14:21 Pulse 93 12/03/19 14:21 Resp 12 12/03/19 14:21 BP 104/72 12/03/19 14:21 Pulse Ox 100 12/03/19 14:21 Vital Signs Reviewed: Yes Eye Exam: Normal Eyes: Positive: Conjunctiva Clear ENT Exam: Normal ENT: Positive: Normal ENT inspection, Hearing grossly normal. Negative: Trismus , Muffled voice, Hoarse voice Dental Exam: Normal Neck exam: Normal Neck: Positive: Supple, Nontender, No Lymphadenopathy Respiratory Exam: Normal Respiratory: Positive: Chest non-tender, No respiratory distress, No accessory muscle use Cardiovascular Exam: Normal Cardiovascular: Positive: RRR, Pulses Normal, Brisk Capillary Refill Musculoskeletal Exam: Other Musculoskeletal: Positive: Strength Intact, ROM Intact, Edema @ - left greaat toe Neurological Exam: Normal Neurological: Positive: Alert, Muscle Tone Normal Psychological Exam: Normal Skin: Positive: Other - small abrasion left great toe-- Diagnostics - Radiology No standard instances Radiology Interpretation Completed By: Radiologist - no evidence of fracture Lower Extremity Course/Dx - Course Course Of Treatment: post op shoe, rest ice elevation, tylenol ibuprofen for pain follow with ortho if failure to improve/resolve in 3-4 days - Differential Dx/Diagnosis Provider Diagnosis: Crushing injury of left great toe Discharge ED - Sign-Out/Discharge Documenting (check all that apply): Patient Departure All imaging exams completed and their final reports reviewed: Yes - Discharge Plan Condition: Stable Disposition: HOME Patient Education Materials: Acute Wound Care (ED), Foot Contusion (ED), R.I.C.E. Treatment (ED), Crush Injury (ED) Forms: *Work Release Referrals: Stephany Dukes MD [Medical Doctor] - 5 Days - Billing Disposition and Condition Condition: STABLE Disposition: Home - Attestation Statements Provider Attestation: I was available for consult. This patient was seen by the SHRUTI. The patient was not presented to, seen by, or examined by me. -Carmencita
[2019-12-03 16:22] VITALS: BP 102/70
== END 2019-12-03 16:10 | disposition home or self-care (01) ==
LOC: UCEAST 13:57
DX: S97.112A Crushing injury of left great toe, initial encounter (principal); W22.8XXA Striking against or struck by other objects, initial encounter; Y92.9 Unspecified place or not applicable
CPT/HCPCS: 99213; G0463